=== PATIENT | male | born 1970 ===

== ENCOUNTER 2021-12-10 02:31 | Emergency (ER) | payer OTHER ==
[~2021-12-10] VITALS: Ht 172.7 cm; Wt 142.9 kg
[~2021-12-10 02:31] MED LIST: AMOX1TAB12 PO; CARDIZEM LA120 MG; GILTUSS TR TAB1 EACH PO; TOBREX5 ML OP; ZYRTEC10 MG PO
== END 2021-12-10 06:02 | disposition home or self-care (01) ==
LOC: ER 02:31
DX: K29.70 Gastritis, unspecified, without bleeding (principal); K76.0 Fatty (change of) liver, not elsewhere classified

== ENCOUNTER 2022-06-19 22:43 | Emergency (ER) | payer OTHER ==
[~2022-06-19] VITALS: Ht 172.7 cm; Wt 136.1 kg
[2022-06-20] MEDS ORDERED: KETO10TA2 PO (02:12)
== END 2022-06-20 02:21 | disposition home or self-care (01) ==
LOC: ER 22:43
DX: S66.811A Strain of other specified muscles, fascia and tendons at wrist and hand level, right hand, initial encounter (principal); X58.XXXA Exposure to other specified factors, initial encounter; Y93.89 Activity, other specified; Y92.89 Other specified places as the place of occurrence of the external cause; Y99.9 Unspecified external cause status; M25.531 Pain in right wrist